=== PATIENT | female | born 1965 | race Caucasian/White ===

== ENCOUNTER 2017-10-17 16:30 | Inpatient (IN) | payer MEDICARE, OTHER ==
[~2017-10-17] VITALS: Ht 154.7 cm; Wt 72.6 kg
[~2017-10-17 16:30] MED LIST: Acetaminophen PO; HYDR-548 PO; IBUP-1957 PO; SULF1TAB48 PO
[2017-10-17] MEDS ORDERED: methylPREDNISolone SOD SUCC 125 MG/2 ML VIAL IV ONE (17:44)
[2017-10-17] MEDS ORDERED: ALBUTEROL SULFATE 2.5 MG/ 0.5 ML NEBU NEB ONE (17:44)
[2017-10-17] MEDS ORDERED: IPRATROPIUM BROMIDE 0.5 MG/2.5 ML NEBU NEB ONE (17:45)
[2017-10-17] MEDS ORDERED: ALBUTEROL SULFATE 2.5 MG/ 0.5 ML NEBU ONE (17:54)
[2017-10-17] MEDS ORDERED: IPRATROPIUM BROMIDE 0.5 MG/2.5 ML NEBU ONE (17:54)
[2017-10-17] MEDS ORDERED: methylPREDNISolone SOD SUCC 125 MG/2 ML VIAL ONE (17:56)
[2017-10-17] MEDS ORDERED: IV NS 1000 ML 1,000 ML IV ONE (18:00)
[2017-10-17 18:13] LABS: BASOPHILS # (AUTO) 0.1 K/uL (0.0-8.0); BASOPHILS % (AUTO) 0.8 % (0.0-2.0); EOSINOPHILS # (AUTO) 0.2 K/uL (0.0-0.7); EOSINOPHILS % (AUTO) 2.7 % (0.0-7.0); HEMATOCRIT 39.2 % (31.2-41.9); HEMOGLOBIN 13.2 g/dL (10.9-14.3); LYMPHOCYTES # (AUTO) 1.6 K/uL (20.0-40.0); MEAN CORPUSCULAR HEMOGLOBIN 30.6 uug (24.7-32.8); MEAN CORPUSCULAR HGB CONC 34 g/dL (32.3-35.6); MONOCYTES # (AUTO) 0.7 K/uL (2.0-10.0); MONOCYTES % (AUTO) 8.2 % (0.0-11.0); NEUTROPHILS # (AUTO) 5.9 K/uL (1.8-8.9); NEUTROPHILS % (AUTO) 69.3 % (38.5-71.5); PLATELET COUNT (AUTO) 228 K/uL (179-408); RED BLOOD CELL COUNT(AUTO) 4.31 MIL/uL (3.63-4.92); WHITE BLOOD COUNT (AUTO) 8.5 K/uL (3.8-11.8)
--- NOTE | 2017-10-17 18:14 | NUR ---
SOLUMEDROL ADMINISTERED, SALINE LOCK PLACED. 1L 0.9NS BOLUS INFUSING, MONITOR SHOWS NSR, PO2=97% ON ROOMAIR.
[2017-10-17 18:22] LABS: CREATININE 0.8 mg/dL (0.6-1.3); POTASSIUM 3.9 mmol/L (3.5-5.1)
[2017-10-17 18:34] LABS: BILIRUBIN,TOTAL 0.2 mg/dL (0.2-1.0); TOTAL PROTEIN, SERUM 7.4 g/dL (6.4-8.2)
--- NOTE | 2017-10-17 18:58 | NUR ---
SBAR REPORT TO LUZ MARINA OLIVER PT POSITIONED FOR COMFORT.
[2017-10-17] MEDS ORDERED: ALBUTEROL SULFATE 2.5 MG/3 ML NEBU NEB ONE ×2 (19:15→20:15)
[2017-10-17] MEDS ORDERED: IV NORMAL SALINE 1000 ML BAG IV ONE (19:15)
[2017-10-17] MEDS ORDERED: HYDROCODONE BIT/HOMATROPINE 5 ML UDC PO ONE (19:15)
[2017-10-17] MEDS ORDERED: IBUPROFEN 800 MG TABLET PO ONE (19:15)
[2017-10-17] MEDS ORDERED: ACETAMINOPHEN ES 500 MG TABLET PO ONE (19:15)
[2017-10-17] MEDS ORDERED: ACETAMINOPHEN ES 500 MG TABLET ONE (19:22)
[2017-10-17] MEDS ORDERED: IBUPROFEN 800 MG TABLET ONE (19:22)
[2017-10-17] MEDS ORDERED: HYDROCODONE BIT/HOMATROPINE 5 ML UDC ONE (19:22)
[2017-10-17] MEDS ORDERED: ALBUTEROL SULFATE 2.5 MG/3 ML NEBU ONE (19:26)
[2017-10-17] MEDS ORDERED: ONDANSETRON 4 MG/2 ML VIAL IV ONE (22:00)
[2017-10-17] MEDS ORDERED: MORPHINE SULFATE 4 MG/1 ML DISP.SYRIN IV ONE (22:00)
[2017-10-17] MEDS ORDERED: ONDANSETRON 4 MG/2 ML VIAL ONE (22:02)
[2017-10-17] MEDS ORDERED: MORPHINE SULFATE 4 MG/1 ML DISP.SYRIN ONE (22:02)
--- NOTE | 2017-10-17 22:30 | NUR ---
RECEIVED PT FROM ER VIA GURNEY. PT IS AWAKE, ALERT, ORIENTEDX4. PT ADMITTED TO TELE. UNDER THE CARE OF DR. PEREZ. DX.COPD. BELONGING LIST DONE. ADMISSION PROCESS AND CARE PLAN INITIATED.LONGTERM ASSESSMENT DONE. CALL LIGHT WITHIN REACH. BED ALARM AND IN LOW POSITION.WILL CONTINUE TO MONITOR.
--- NOTE | 2017-10-17 22:32 | NUR ---
Pt. admitted to TELE, under care of Dr. Shook. Belongs List completed
[2017-10-17] MEDS ORDERED: ALBUTEROL SULFATE 2.5 MG/3 ML NEBU NEB PRN (23:30)
[2017-10-17] MEDS ORDERED: TEMAZEPAM 15 MG CAPSULE PO PRN (23:30)
[2017-10-17] MEDS ORDERED: IPRATROPIUM BROMIDE 0.5 MG/2.5 ML NEBU NEB PRN (23:30)
[2017-10-17] MEDS ORDERED: ACETAMINOPHEN 325 MG TABLET PO PRN (23:30)
[2017-10-17] MEDS ORDERED: HYDROCODONE/APAP 5-325MG TABLET PO PRN (23:30)
[2017-10-17] MEDS ORDERED: ONDANSETRON 4 MG/2 ML VIAL IV PRN (23:30)
[2017-10-17] MEDS ORDERED: MAGNESIUM HYDROXIDE 30 ML LIQUID UDC PO PRN (23:30)
[2017-10-18] VITALS: BP_SYST 108; BP_SYST 116; BP_DIAS 59; BP_DIAS 64
[2017-10-18] MEDS: MORPHINE SULFATE 4 MG/1 ML DISP.SYRIN IV PRN ×5 (00:57→23:16)
[2017-10-18] MEDS ORDERED: LEVOFLOXACIN 500 MG/D5W 100 ML ONE (01:24)
[2017-10-18] MEDS: LEVOFLOXACIN 500 MG/D5W 500 MG in PREMIXED 1 EACH IV SCH (01:27)
--- NOTE | 2017-10-18 01:30 | NUR ---
LEVAQUIN MEDICATION GIVEN. LEVAQUIN STOCK MED 0124H WAS OVERRIDE BY CHARGE NURSE.
[2017-10-18] MEDS: methylPREDNISolone SOD SUCC 40 MG/ML VIAL IV SCH ×3 (05:02→22:45)
[2017-10-18] MEDS: PANTOPRAZOLE SODIUM 40 MG TABLET.DR PO SCH (06:13)
--- NOTE | 2017-10-18 06:20 | NUR ---
PT SLEPT INTERMITTENTLY. ADVISED PT TO CALL NURSE IF SHE WILL AMBULATE FOR ASSISTANCE. ADVISED PT TO BE AWARE OF THE IV LOCATION ON HER LEGS. PRESCRIBED MEDICATION GIVEN. PT TOLERATED IT WELL. PAIN MEDICATION GIVEN. CALL LIGHT WITHIN REACH.BED ALARM ON AND IN LOW POSITION. PT ASKING FOR DILAUDID NOT MORPHINE. WILL ENDORSE TO DAYSHIFT NURSE.
[2017-10-18 06:34] LABS: BASOPHILS % (AUTO) 0.1 % (0.0-2.0); HEMATOCRIT 38.4 % (31.2-41.9); HEMOGLOBIN 12.9 g/dL (10.9-14.3); LYMPHOCYTES # (AUTO) 0.7 K/uL (20.0-40.0); LYMPHOCYTES % (AUTO) 10.6 % (20.5-51.5); MEAN CORPUSCULAR HEMOGLOBIN 30.8 uug (24.7-32.8); MEAN CORPUSCULAR HGB CONC 34 g/dL (32.3-35.6); MEAN CORPUSCULAR VOLUME 91.7 fL (75.5-95.3); MONOCYTES # (AUTO) 0.1 K/uL (2.0-10.0); NEUTROPHILS # (AUTO) 5.4 K/uL (1.8-8.9); NEUTROPHILS % (AUTO) 87.3 % (38.5-71.5); PLATELET COUNT (AUTO) 220 K/uL (179-408); RED BLOOD CELL COUNT(AUTO) 4.19 MIL/uL (3.63-4.92); WHITE BLOOD COUNT (AUTO) 6.2 K/uL (3.8-11.8)
[2017-10-18 06:48] LABS: THYROID STIMULATING HORMONE 0.552 mIU/mL (0.358-3.740)
[2017-10-18 06:49] LABS: BILIRUBIN,TOTAL 0.1 mg/dL (0.2-1.0); MAGNESIUM 2.1 mg/dL (1.8-2.4); PHOSPHOROUS 3.2 mg/dL (2.5-4.9); TOTAL PROTEIN, SERUM 7.4 g/dL (6.4-8.2)
--- NOTE | 2017-10-18 07:00 | NUR ---
RECEIVED PATIENT IN BED, ASLEEP, A AND O X 4. NO SOB AT THIS TIME. NO ACUTE DISTRESS NOTED. IV ACCESS ON THE LEFT LOWER LEG #22, INTACT AND PATENT. ALL COMFORT MEASURES PROVIDED. CALL LIGHT WITHIN REACH. WILL CONTINUE TO MONITOR CLOSELY.
[2017-10-18] MEDS: FLUTICASONE/VILANTEROL 1 EACH BLST.W.DEV INH SCH (08:44)
[2017-10-18 11:39] VITALS: BP 118/65
--- NOTE | 2017-10-18 15:30 | NUR ---
PATIENT COMPLAINED THAT MORPHINE 2MG Q4 PRN, DID NOT ALLEVIATE HEAD AND NECK PAIN. LEFT MESSAGE AND INFORMED DR. MACKAY REGARDING COMPLAINT. WILL CONTINUE TO MONITOR.
[2017-10-18 16:17] VITALS: BP 120/73
--- NOTE | 2017-10-18 19:20 | NUR ---
RECEIVED PT AWAKE, ALERT, ORIENTEDX3. PT SHOWS NO SIGNS OF DISTRESS. IV INTACT AND PATENT. CALL LIGHT WITHIN REACH. BED ALARM ON AND IN LOW POSITION. WILL CONTINUE TO MONITOR.
[2017-10-18] MEDS: TEMAZEPAM 7.5 MG CAPSULE PO PRN (20:43)
[2017-10-18] MEDS: DOCUSATE SODIUM 100 MG CAPSULE PO SCH (20:43)
[2017-10-18 21:00] VITALS: BP 113/62
[2017-10-18] MEDS ORDERED: ALPRAZOLAM 0.5 MG TABLET PO ONE (22:22)
[2017-10-19] MEDS: LEVOFLOXACIN 500 MG/D5W 500 MG in PREMIXED 1 EACH IV SCH (00:06)
[2017-10-19] MEDS: MORPHINE SULFATE 4 MG/1 ML DISP.SYRIN IV PRN ×6 (03:22→21:31)
[2017-10-19] MEDS: methylPREDNISolone SOD SUCC 40 MG/ML VIAL IV SCH ×3 (05:04→21:14)
[2017-10-19] MEDS: PANTOPRAZOLE SODIUM 40 MG TABLET.DR PO SCH (06:04)
--- NOTE | 2017-10-19 06:08 | NUR ---
PT SLEPT THROUGHOUT THE SHIFT. PT SHOWS NO SIGNS OF DISTRESS. PT IV INTACT AND PATENT.PAIN MANAGEMENT DONE. PRESCRIBED MEDICATION GIVEN. PT TOLERATED IT WELL. FOUND LINE CONSTRUCTION SUPERINTENDENT ON HER BED. CALL LIGHT WITHIN REACH. BED ALARM ON. SAFETY AND COMFORT PROVIDED. WILL ENDORSE TO DAYSHIFT NURSE.
--- NOTE | 2017-10-19 07:17 | NUR ---
RETURNED ZOFRAN IN PYXIS AND IN RETURN BIN. PT DIDN'T FEEL NAUSEA.
[2017-10-19] MEDS: FLUTICASONE/VILANTEROL 1 EACH BLST.W.DEV INH SCH (08:09)
[2017-10-19 12:04] VITALS: BP 113/69
[2017-10-19 16:08] VITALS: BP 139/79
[2017-10-19] MEDS: ALBUTEROL SULFATE 2.5 MG/3 ML NEBU NEB SCH ×4 (16:33→22:31)
[2017-10-19] MEDS: IPRATROPIUM BROMIDE 0.5 MG/2.5 ML NEBU NEB SCH ×4 (16:34→22:31)
--- NOTE | 2017-10-19 18:55 | NUR ---
Patient resting in bed, in no distress. Noted SOB upon exertion, occasional productive cough with slight wheezing. Breathing treatment as ordered. VS stable, afebrile. Pain management as ordered. Safety measures in place, call light within reach.
--- NOTE | 2017-10-19 19:30 | NUR ---
PT ALERT AWAKE IN NO RESP DISTRESS. STATES SHE WOULD LIKE HER XANAX AT THIS TIME. AWAITING FOR MIDLINE INSERTION. V/S ARE WNL. CONTINUE TO MONITOR. CALL LIGHT WITHIN REACH. DENIES ANY SOB BUT C/O PAIN 05/14. MAINTAINING OXYGEN NOTED 96% RA.
[2017-10-19] MEDS: DOCUSATE SODIUM 100 MG CAPSULE PO SCH (20:06)
[2017-10-19] MEDS: ALPRAZOLAM 0.5 MG TABLET PO PRN (20:06)
[2017-10-19 20:31] VITALS: BP 118/67
[2017-10-19] MEDS: TEMAZEPAM 7.5 MG CAPSULE PO PRN (23:18)
[2017-10-20] MEDS: MORPHINE SULFATE 4 MG/1 ML DISP.SYRIN IV PRN ×7 (01:19→22:34)
[2017-10-20] MEDS: LEVOFLOXACIN 500 MG/D5W 500 MG in PREMIXED 1 EACH IV SCH (01:20)
[2017-10-20] MEDS: ALBUTEROL SULFATE 2.5 MG/3 ML NEBU NEB SCH ×6 (02:30→22:40)
[2017-10-20] MEDS: IPRATROPIUM BROMIDE 0.5 MG/2.5 ML NEBU NEB SCH ×6 (02:30→22:40)
[2017-10-20 05:50] VITALS: BP 108/53
--- NOTE | 2017-10-20 05:57 | NUR ---
PT IN ROOM ALERT AWAKE IN NO RESP DISTRESS. PRESENT WITH NON PRODUCTIVE COUGH. NO ADVERSE EFFECTED TO RECENT IV ABX LEVAQUIN THERAPY. MIDLINE INTACT AND PATENT TO LEFT UPPER ARM. SITE REINFORCED WITH NEW DRESSING D/T PREVIOUS UNSECURED DRESSING. PT TO CONTINUE ON ROUTINE SOLUMEDROL AND REQUESTING MORPHINE AT THIS TIME. CONTINUE TO MONITOR. REMINDED PT TO WEAR OXYGEN N/C WHILE IN BED. HOB MAINTAINED 30 DEGREES WITH CALL LIGHT PLACED WITHIN REACH.
[2017-10-20] MEDS: PANTOPRAZOLE SODIUM 40 MG TABLET.DR PO SCH (06:07)
[2017-10-20] MEDS: methylPREDNISolone SOD SUCC 40 MG/ML VIAL IV SCH ×3 (06:07→21:03)
[2017-10-20 06:30] LABS: BASOPHILS # (AUTO) 0.1 K/uL (0.0-8.0); BASOPHILS % (AUTO) 0.6 % (0.0-2.0); HEMATOCRIT 37.4 % (31.2-41.9); HEMOGLOBIN 12.3 g/dL (10.9-14.3); LYMPHOCYTES # (AUTO) 1.3 K/uL (20.0-40.0); LYMPHOCYTES % (AUTO) 8.4 % (20.5-51.5); MEAN CORPUSCULAR HEMOGLOBIN 30.5 uug (24.7-32.8); MEAN CORPUSCULAR HGB CONC 33 g/dL (32.3-35.6); MEAN CORPUSCULAR VOLUME 92.9 fL (75.5-95.3); NEUTROPHILS # (AUTO) 13.6 K/uL (1.8-8.9); PLATELET COUNT (AUTO) 239 K/uL (179-408); RED BLOOD CELL COUNT(AUTO) 4.02 MIL/uL (3.63-4.92)
[2017-10-20 06:40] LABS: CREATININE 0.7 mg/dL (0.6-1.3); MAGNESIUM 2.2 mg/dL (1.8-2.4); PHOSPHOROUS 3.5 mg/dL (2.5-4.9); POTASSIUM 4.3 mmol/L (3.5-5.1)
--- NOTE | 2017-10-20 07:58 | NUR ---
Rounds to patient. Has some rhonchi with wheezing throughout all lung lemus. Notes back pain with coughing. Thankful for assistance from administrative underwriter. Possible benefit from cough medicine, phenergan/codeine as patient is taking morphine for pain with cough. Will continue to monitor.
[2017-10-20 08:42] VITALS: BP 118/61
[2017-10-20] MEDS: FLUTICASONE/VILANTEROL 1 EACH BLST.W.DEV INH SCH (09:13)
[2017-10-20 12:05] VITALS: BP 122/60
[2017-10-20] MEDS: ALPRAZOLAM 0.5 MG TABLET PO PRN ×2 (12:57→21:57)
[2017-10-20 15:56] VITALS: BP 132/78
--- NOTE | 2017-10-20 19:30 | NUR ---
PT IN ROOM ALERT AWAKE RECEIVING BREATHING TX AT THIS TIME. STATES PAIN UPON COUGHING TO UPPER BACK WITH HEADACHES. REQUESTING TO HAVE MORPHINE FOR COMFORT MEASURES. PT'S LUNGS BILATERAL STILL PRESENT WITH WHEEZING. ENCOURAGED TO CONTINUE USING OXYGEN AT 2L/MIN VIA N/C. CALL LIGHT PLACED WITHIN REACH. HOB MAINTAINED 45 DEGREES. MIDLINE INTACT AND FLUSHING WELL. CONTINUE TO MONITOR. PT MADE AWARE OF PLAN OF CARE.
[2017-10-20] MEDS: DOCUSATE SODIUM 100 MG CAPSULE PO SCH (20:35)
[2017-10-20 20:55] VITALS: BP 130/73
[2017-10-20] MEDS: TEMAZEPAM 7.5 MG CAPSULE PO PRN (23:51)
[2017-10-21] MEDS: LEVOFLOXACIN 500 MG/D5W 500 MG in PREMIXED 1 EACH IV SCH ×2
[2017-10-21] MEDS: MORPHINE SULFATE 4 MG/1 ML DISP.SYRIN IV PRN ×4 (01:33→12:00)
[2017-10-21] MEDS: ALBUTEROL SULFATE 2.5 MG/3 ML NEBU NEB SCH ×3 (03:30→11:30)
[2017-10-21] MEDS: IPRATROPIUM BROMIDE 0.5 MG/2.5 ML NEBU NEB SCH ×3 (03:30→11:30)
[2017-10-21 04:00] VITALS: BP 121/72
--- NOTE | 2017-10-21 05:51 | NUR ---
PT IN ROOM ALERT AWAKE STATING PAIN WHEN SHE COUGHS. PT MADE AWARE OF CURRENT MEDICATION REGIMEN AND POSSIBLE UPCOMING PULMONARY CONSULT PER MD. NO REACTION TO IV ABX LEVAQUIN. ENCOURAGED PT TO USE OXYGEN 2L/MIN VIA N/C FOR ANY RESP DISTRESS. CONTINUE TO MONITOR. CALL LIGHT PLACED WITHIN REACH.
[2017-10-21] MEDS ORDERED: methylPREDNISolone SOD SUCC 40 MG/ML VIAL IV SCH (06:00)
[2017-10-21] MEDS: PANTOPRAZOLE SODIUM 40 MG TABLET.DR PO SCH (06:07)
[2017-10-21] MEDS ORDERED: FLUTICASONE/VILANTEROL 1 EACH BLST.W.DEV INH SCH (09:00)
[2017-10-21] MEDS ORDERED: FLUT1BLS INH (11:00)
[2017-10-21] MEDS ORDERED: ALPR0.5T PO (11:00)
[2017-10-21] MEDS ORDERED: METH4TAB3 PO (11:00)
[2017-10-21] MEDS ORDERED: HYDR-3326 PO (11:00)
[2017-10-21] MEDS ORDERED: ALBU6.7H INH (11:00)
[2017-10-21 11:15] VITALS: BP 139/86
--- NOTE | 2017-10-21 12:22 | NUR ---
MIDLINE REMOVED. PT ARM CIRCUMFERENCE IS 13 INCHES, NO SWELLING NOTED. CATHETER OF MIDLINE IS 4 INCHES IN LENGTH. CONTINUE TO MONITOR.
--- NOTE | 2017-10-21 12:50 | NUR ---
PT D/C HOME VIA PRIVATE CAR. PT MIDLINE REMOVED, ID BAND REMOVED. PT D/C WITH ALL BELONGINGS, PRESCRIPTIONS,VALUABLES AND EXIT CARE PACKET. PT STABLE TO D/C.
[2017-10-21 14:50] VITALS: BP 124/56
== END 2017-10-21 12:50 | disposition home or self-care (01) | DRG 202 ==
LOC: ER 16:30 → TELE 22:01 → MED 10-18 17:00
PROVIDERS: ADMIT Internal Medicine; ATTEND Internal Medicine
DX: J20.9 Acute bronchitis, unspecified (principal); L03.115 Cellulitis of right lower limb; B96.89 Other specified bacterial agents as the cause of diseases classified elsewhere; Z89.431 Acquired absence of right foot; Z96.652 Presence of left artificial knee joint; G89.29 Other chronic pain; G47.00 Insomnia, unspecified; F41.9 Anxiety disorder, unspecified; E66.9 Obesity, unspecified; Z68.30 Body mass index [BMI] 30.0-30.9, adult; R73.9 Hyperglycemia, unspecified; M17.32 Unilateral post-traumatic osteoarthritis, left knee; Z87.891 Personal history of nicotine dependence; J45.909 Unspecified asthma, uncomplicated
CPT/HCPCS: 36415; 36569; 70030-TC; 71045; 83735; 84100; 84443; 85025; 87400; 93005; 94640; 94664; A4663; A9150; J1956; J2270; J2405; J2920; J2930; J3590; J7030; J7040

== ENCOUNTER 2017-12-22 01:42 | Emergency (ER) | payer MEDICARE, OTHER ==
[~2017-12-22] VITALS: Ht 175.3 cm; Wt 77.1 kg
[~2017-12-22 01:42] MED LIST changes: +ALBU6.7H INH; +ALPR0.5T PO; +FLUT1BLS INH; +HYDR-3326 PO; -HYDR-548 PO; -IBUP-1957 PO; +METH4TAB3 PO; -SULF1TAB48 PO
[2017-12-22] MEDS ORDERED: IBUP800T54 PO (01:53)
[2017-12-22] MEDS ORDERED: CEPH-570 PO (01:53)
[2017-12-22] MEDS ORDERED: SULFAMETH/TRIMETH 800/160 MG TABLET ONE (02:08)
[2017-12-22] MEDS ORDERED: SULFAMETH/TRIMETH 800/160 MG TABLET PO ONE (02:15)
--- NOTE | 2017-12-22 02:15 | NUR ---
Patient discharged to home in stable conditon. Written and verbal after care instructions given. Patient verbalizes understanding of instructions. Patient able to ambulate unassisted with a steady gait. Patient left with all personal belongings.
[2017-12-22 02:20] VITALS: BP 141/77
== END 2017-12-22 02:15 | disposition home or self-care (01) ==
LOC: ER 01:42
DX: L03.116 Cellulitis of left lower limb (principal); L97.929 Non-pressure chronic ulcer of unspecified part of left lower leg with unspecified severity
CPT/HCPCS: A4663

== ENCOUNTER 2017-12-22 13:11 | Emergency (ER) | payer MEDICARE, OTHER ==
[~2017-12-22] VITALS: Ht 175.3 cm; Wt 77.1 kg
[~2017-12-22 13:11] MED LIST changes: +CEPH-570 PO; +IBUP800T54 PO
[2017-12-22 15:15] LABS: BASOPHILS # (AUTO) 0.1 K/uL (0.0-8.0); EOSINOPHILS # (AUTO) 0.3 K/uL (0.0-0.7); HEMATOCRIT 40.5 % (31.2-41.9); HEMOGLOBIN 13.9 g/dL (10.9-14.3); LYMPHOCYTES # (AUTO) 1.9 K/uL (20.0-40.0); LYMPHOCYTES % (AUTO) 22.1 % (20.5-51.5); MEAN CORPUSCULAR HEMOGLOBIN 31.3 uug (24.7-32.8); MEAN CORPUSCULAR HGB CONC 34 g/dL (32.3-35.6); MEAN CORPUSCULAR VOLUME 90.9 fL (75.5-95.3); MONOCYTES # (AUTO) 0.9 K/uL (2.0-10.0); MONOCYTES % (AUTO) 10.4 % (0.0-11.0); NEUTROPHILS # (AUTO) 5.5 K/uL (1.8-8.9); NEUTROPHILS % (AUTO) 63.5 % (38.5-71.5); PLATELET COUNT (AUTO) 281 K/uL (179-408); RED BLOOD CELL COUNT(AUTO) 4.45 MIL/uL (3.63-4.92); WHITE BLOOD COUNT (AUTO) 8.7 K/uL (3.8-11.8)
[2017-12-22 15:23] LABS: CREATININE 0.8 mg/dL (0.6-1.3); POTASSIUM 3.6 mmol/L (3.5-5.1)
[2017-12-22] MEDS ORDERED: CLINDAMYCIN HCL 150 MG CAPSULE PO ONE (16:45)
[2017-12-22] MEDS ORDERED: CLINDAMYCIN HCL 300 MG CAPSULE ONE (17:12)
--- NOTE | 2017-12-22 17:15 | NUR ---
Patient discharged to home in stable conditon. Written and verbal after care instructions given. Patient verbalizes understanding of instructions. Stressed follow up or return to ER for worsening s/s.
== END 2017-12-22 17:16 | disposition home or self-care (01) ==
LOC: ER 13:11
DX: L03.116 Cellulitis of left lower limb (principal); N17.9 Acute kidney failure, unspecified
CPT/HCPCS: 36415; 85025; 85730; 87070; 87077; A4663

== ENCOUNTER 2018-02-15 23:47 | Inpatient (IN) | payer MEDICARE, OTHER ==
[~2018-02-15] VITALS: Ht 175.3 cm; Wt 88.9 kg
[~2018-02-15 23:47] MED LIST changes: -ALBU6.7H INH; -ALPR0.5T PO; -Acetaminophen PO; -FLUT1BLS INH; -HYDR-3326 PO; -METH4TAB3 PO
[2018-02-16] MEDS ORDERED: IV NORMAL SALINE 1000 ML BAG IV ONE (00:15)
[2018-02-16] MEDS ORDERED: ONDANSETRON 4 MG/2 ML VIAL IV ONE (00:15)
[2018-02-16] MEDS ORDERED: MORPHINE SULFATE 2 MG/1 ML DISP.SYRIN IV ONE (00:15)
[2018-02-16] MEDS ORDERED: VANCOMYCIN IV 1,000 MG in IV DEXTROSE 5% 250 ML IV ONE (00:30)
[2018-02-16 00:38] LABS: BASOPHILS # (AUTO) 0.1 K/uL (0.0-8.0); BASOPHILS % (AUTO) 0.4 % (0.0-2.0); EOSINOPHILS # (AUTO) 0.3 K/uL (0.0-0.7); EOSINOPHILS % (AUTO) 2.5 % (0.0-7.0); HEMATOCRIT 39.4 % (31.2-41.9); HEMOGLOBIN 13.3 g/dL (10.9-14.3); LYMPHOCYTES # (AUTO) 1.7 K/uL (20.0-40.0); MEAN CORPUSCULAR HEMOGLOBIN 30.6 uug (24.7-32.8); MEAN CORPUSCULAR HGB CONC 34 g/dL (32.3-35.6); MONOCYTES # (AUTO) 0.7 K/uL (2.0-10.0); MONOCYTES % (AUTO) 6.1 % (0.0-11.0); NEUTROPHILS # (AUTO) 9.2 K/uL (1.8-8.9); PLATELET COUNT (AUTO) 266 K/uL (179-408); RED BLOOD CELL COUNT(AUTO) 4.33 MIL/uL (3.63-4.92); WHITE BLOOD COUNT (AUTO) 11.9 K/uL (3.8-11.8)
[2018-02-16] MEDS ORDERED: ONDANSETRON 4 MG/2 ML VIAL ONE (00:50)
[2018-02-16] MEDS ORDERED: MORPHINE SULFATE 2 MG/1 ML DISP.SYRIN ONE (00:51)
[2018-02-16] MEDS ORDERED: VANCOMYCIN IV 200 ML ONE (00:51)
[2018-02-16 00:58] LABS: BILIRUBIN,DIRECT 0.1 mg/dL (0.0-0.2); BILIRUBIN,TOTAL 0.3 mg/dL (0.2-1.0); POTASSIUM 3.7 mmol/L (3.5-5.1); TOTAL PROTEIN, SERUM 7.6 g/dL (6.4-8.2)
[2018-02-16] MEDS ORDERED: HYDROCODONE/APAP 5-325MG TABLET PO PRN (02:15)
[2018-02-16] MEDS ORDERED: ACETAMINOPHEN 325 MG TABLET PO PRN (02:15)
[2018-02-16] MEDS ORDERED: MAGNESIUM HYDROXIDE 30 ML LIQUID UDC PO PRN (02:15)
[2018-02-16] MEDS ORDERED: ONDANSETRON 4 MG/2 ML VIAL IV PRN (02:15)
[2018-02-16] MEDS ORDERED: ZOLPIDEM 5 MG TABLET PO PRN (02:15)
[2018-02-16] MEDS ORDERED: MORPHINE SULFATE 2 MG/1 ML DISP.SYRIN IV PRN (02:15)
[2018-02-16] MEDS ORDERED: PIPERACILLIN/TAZOBACTAM/D5W 50 ML IV ONE (03:38)
[2018-02-16] MEDS ORDERED: PIPERACILLIN/TAZOBACTAM/D5W 3.375 G in PREMIXED 1 EACH IV SCH (06:00)
[2018-02-16] MEDS ORDERED: PANTOPRAZOLE SODIUM 40 MG TABLET.DR PO SCH (07:00)
[2018-02-16] MEDS ORDERED: ENOXAPARIN SODIUM 40 MG/0.4 ML DISP.SYRIN SQ SCH (09:00)
[2018-02-16] MEDS ORDERED: DOCUSATE SODIUM 250 MG CAPSULE PO SCH (21:00)
== END 2018-02-16 04:10 | disposition left against medical advice (07) | DRG 565 ==
LOC: ER 23:49 → TELE 02-16 01:09
PROVIDERS: ADMIT Internal Medicine; ATTEND Internal Medicine
DX: T87.43 Infection of amputation stump, right lower extremity (principal); L03.115 Cellulitis of right lower limb; Y83.8 Other surgical procedures as the cause of abnormal reaction of the patient, or of later complication, without mention of misadventure at the time of the procedure; Y92.009 Unspecified place in unspecified non-institutional (private) residence as the place of occurrence of the external cause; J45.909 Unspecified asthma, uncomplicated
CPT/HCPCS: 36415; 71045; 83690; 85025; 87040; 93005; A4663; J2270; J2405; J2543; J3370; J7030